=== PATIENT | male | born 1980 | race Caucasian/White ===

== ENCOUNTER 2018-04-30 08:28 | Outpatient (CLI) | payer OTHER | END 2018-04-30 08:29 | disposition critical access hospital (66) | LOC: EMS 08:28 | PROVIDERS: ATTEND Surgery | DX: R53.1 Weakness (principal) | CPT/HCPCS: A0425; A0429 ==

== ENCOUNTER 2018-04-30 08:52 | Emergency (ER) | payer OTHER ==
[2018-04-30] MEDS ORDERED: MAG HYDROX/AL HYDROX/SIMETH 30 ML UDC PO STA (11:35)
[2018-04-30 11:49] LABS: CALCIUM 9.7 mg/dL (8.5-10.3); CREATININE 0.8 mg/dL (0.6-1.2)
--- NOTE | 2018-04-30 13:01 | ED Physician Documentation ---
History of Present Illness - Stated complaint Stated Complaint: LUE NUMBNESS - Chief complaint Chief Complaint: Neuro - History obtained from History obtained from: Patient - History of Present Illness Timing: Last night - Additonal information Additional information: The patient is an otherwise healthy 37-year-old male who had an episode of anxiety and left upper extremity numbness/weakness last night while driving. The incident occurred after drinking an energy drink. He reports associated shortness of breath, but denies chest pain, sore throat, nausea or vomiting. His symptoms gradually resolved over a period of less than one hour. He denies history of similar symptoms in the past. Review of Systems Constitutional: denies: Fever, Fatigue Eyes: denies: Irritation Ears: denies: Tinnitus/ringing Nose: denies: Congestion Throat: denies: Sore throat Cardiac: denies: Chest pain / pressure Respiratory: reports: Dyspnea. denies: Cough GI: reports: Abdominal Pain (Mild epigastric discomfort.). denies: Nausea, Vomiting : denies: Dysuria Skin: denies: Rash Musculoskeletal: denies: Neck pain, Extremity swelling Neurologic: reports: Numbness (Transient numbness of left upper extremity.). denies: Headache PD PAST MEDICAL HISTORY - Past Medical History Cardiovascular: High cholesterol Endocrine/Autoimmune: None - Allergies Allergies/Adverse Reactions: Allergies Allergy/AdvReac Type Severity Reaction Status Date / Time No Known Drug Allergies Allergy Verified 04/30/18 09:06 - Social History Does the pt smoke?: No Smoking Status: Never smoker Does the pt drink ETOH?: Yes Does the pt have substance abuse?: No - Immunizations Immunizations are current?: No - POLST Patient has POLST: No PD ED PE NORMAL - Vitals Vital signs reviewed: Yes (initially hypertensive.) - General General: Alert and oriented X 3, Well developed/nourished - HEENT HEENT: Atraumatic, EOMI, Moist mucous membranes, Pharynx benign - Neck Neck: Supple, no meningeal sign, No adenopathy - Cardiac Cardiac: RRR, No murmur - Respiratory Respiratory: No respiratory distress, Clear bilaterally - Abdomen Abdomen: Soft, Other (Mild epigastric tenderness to palpation, without rebound or guarding.) - Back Back: No CVA TTP - Derm Derm: No rash - Extremities Extremities: No edema, No calf tenderness / cord - Neuro Neuro: Alert and oriented X 3, No motor deficit, No sensory deficit, Normal speech Results - Vitals Vitals: Oxygen O2 Source Room air - EKG (time done) 11:51 Rate: Rate (enter#) (91) Rhythm: NSR [place]: Normal Intervals: Normal MI QRS: Normal Ischemia: T wave inversion (in III) Computer interpretation: Agree with computer - Labs Labs: Laboratory Tests 04/30/18 09:04 Sodium 135 Potassium 3.8 Chloride 100 L Carbon Dioxide 27 Anion Gap 8.0 BUN 13 Creatinine 0.8 Estimated GFR (MDRD) 109 Glucose 112 H Calcium 9.7 PD MEDICAL DECISION MAKING - ED course Complexity details: reviewed results, re-evaluated patient, considered differential, d/w patient ED course: The patient's presentation is most consistent with anxiety reaction related to ingestion of high energy drink. There may also be a component of gastroesophageal reflux. Cardiac ischemia was considered, but is less likely. Electrocardiogram is normal. Electrolytes and blood sugar are normal. Treatment in the emergency department included administration of GI cocktail, with subsequent improvement in his epigastric discomfort. I discussed with him the likely underlying cause of his symptoms, symptomatic treatment and outpatient follow-up, as well as potentially worrisome signs or symptoms that should prompt reevaluation in the emergency department. - Sepsis Event Vital Signs: Oxygen O2 Source Room air Departure - Departure Disposition: 01 Home, Self Care Clinical Impression: Anxiety, GERD (gastroesophageal reflux disease) Condition: Stable Instructions: ED Stress React, ED GERD Comments: Try to avoid drinking energy drinks and other stimulants. You can use liquid antacid, such as Maalox or Mylanta, if you develop recurrent anxiety or discomfort. Follow up with your primary physician within 2 weeks. Call to schedule appointment. Return to the emergency department if you develop chest pain, shortness of breath, vomiting, recurrent numbness or weakness, or otherwise worsening symptoms. Discharge Date/Time: 04/30/18 13:14
[2018-04-30 13:14] VITALS: BP 136/87
== END 2018-04-30 13:14 | disposition home or self-care (01) ==
LOC: EDUNIT# → ED 08:52
DX: F41.9 Anxiety disorder, unspecified (principal); K21.9 Gastro-esophageal reflux disease without esophagitis; E78.00 Pure hypercholesterolemia, unspecified
CPT/HCPCS: 80048; 93005; 99283; A9270

== ENCOUNTER 2018-08-03 09:20 | Outpatient (CLI) | payer OTHER ==
[2018-08-03 17:30] LABS: HGB - HEMOGLOBIN 16.2 g/dL (14.0-18.0); MEAN CORPUSCULAR HEMOGLOBIN 30.6 pg (27.0-31.0); MEAN CORPUSCULAR HGB CONC 33.5 g/dL (32.0-36.0); MEAN CORPUSCULAR VOLUME 91.4 fL (80.0-94.0); MEAN PLATELET VOLUME 12.5 fL (7.4-11.4); RED BLOOD COUNT 5.28 10^6/uL (4.70-6.10); RED CELL DISTRIBUTION WIDTH 12.6 % (12.0-15.0); WHITE BLOOD COUNT 4.9 x10^3/uL (4.8-10.8)
[2018-08-03 18:26] LABS: ALBUMIN 4.9 g/dL (3.2-5.5); ALBUMIN/GLOBULIN RATIO 1.7 (1.0-2.2); ALKALINE PHOSPHATASE 60 IU/L (42-121); ALT ALANINE AMINOTRANSFERASE 47 IU/L (10-60); AST ASPARTATE AMINOTRANSFERASE 31 IU/L (10-42); BUN - BLOOD UREA NITROGEN 11 mg/dL (6-20); CALCIUM 9.7 mg/dL (8.5-10.3); CARBON DIOXIDE - CO2 29 mmol/L (21-32); CHLORIDE 99 mmol/L (101-111); CHOL/HDL RATIO 8.1 (<5.0); CHOLESTEROL 298 mg/dL; CREATININE 0.7 mg/dL (0.6-1.2); GFR - MDRD 127 (>89); GLUCOSE 105 mg/dL (70-100); HDL CHOLESTEROL 37 mg/dL; SODIUM 137 mmol/L (135-145); TOTAL PROTEIN 7.8 g/dL (6.7-8.2)
[2018-08-03 18:56] LABS: LDL CHOLESTEROL,DIRECT 175 mg/dL; LDLD/HDL RATIO 4.7 (<3.6)
== END 2018-08-03 09:21 | disposition home or self-care (01) ==
LOC: LAB.F 09:20
PROVIDERS: ATTEND Internal Medicine
DX: Z00.00 Encounter for general adult medical examination without abnormal findings (principal)
CPT/HCPCS: 36415; 80053; 80061; 83721; 84443; 85027